=== PATIENT | female | born 1970 | race Caucasian/White ===

== ENCOUNTER 2021-02-10 17:05 | Inpatient (IN) | payer OTHER ==
[~2021-02-10] VITALS: Ht 165.1 cm; Wt 48.1 kg
[2021-02-10] VITALS (12 sets, daily range): BP systolic 98–111; BP diastolic 62–74
--- NOTE | ~2021-02-10 | EMS ---
[facility] [address] [place] [address] EMS Patient Care Report Name: VIRA ELIZALDE Room #: PRE M.R.#: [id number] Admission: Attend Phys: Discharge: Date of : 74 Report #: [id number] THIS REPORT FOR: //name// Report Transmitted: 02/10/2021 17:04 EMS Care Summary [place], [place]/[facility] Incident [id number] @ 02/10/2021 16:28 Incident Location [address] [place] [address] Patient VIRA ELIZALDE Female, 50 Years 1970 Patient Address [address] [place] [address] Patient History Alcohol Abuse, Chief Complaint altered LOC Disposition Transported No Lights/[place] Dispatch Reason Sick Person Transported To [facility] Narrative pt is known alcoholic. pt teen son came home to find his mom passed out on the couch. she was having tremors that seemed mostly normal for pt when she is having withdrawals from alcohol. she has been having light tremors for past 2 days. he took a shower and when he checked on her again, her tremors were more severe and she had slid off the couch to the floor. when she would not talk to him, he called 911. on arrival, she will spont open eyes, but no verbal response and does not appear aware of her surroundings. pt to be eval at [facility]. pt to cot, tx as listed in flow chart w/ no change. transport w/o change. [facility] [address] [place] [address] EMS Patient Care Report Name: VIRA ELIZALDE Room #: PRE ER M.R.#: [id number] Admission: Attend Phys: Discharge: Date of : 74 Report #: [id number] Initial Vitals @16:48P: 135,R: 20,BP: 135/86,GCS: 11,Glucose: 68,Revised Trauma: 11, Assessments @16:39MENTAL:SKIN:No Abnormalities,HEENT:Eyes: Left Pupil: 3-mm,Eyes: Right Pupil: 3-mm,LUNG SOUNDS:General: Other,ABDOMEN:General: Other,PELVIS//GI:Incontinence,EXTREMITIES:PULSE:Radial: 2+ Normal,NEURO:Other,Tremors,@16:55MENTAL:SKIN:HEENT:LUNG SOUNDS:ABDOMEN:PELVIS//GI:EXTREMITIES:PULSE:NEURO: Impression Alcohol dependence with withdrawal Procedures @16:39ALS AssessmentResponse: Unchanged@16:563-Lead ECGResponse: Unchanged@16:41StretcherResponse: Unchanged@16:48Narcan - 2 Milligrams (mg) - Intravenous (IV)Response: Unchanged@16:45Saline Lock 10cc (20 ga) Site: Hand-LeftResponse: UnchangedSucceeded Timeline 16:25,Call Received 16:25,Dispatch Notified 16:28,Dispatched 16:28,En Route 16:38,On Scene 16:39,At Patient 16:39,ALS Assessment,Response: Unchanged 16:41,Stretcher,Response: Unchanged 16:45,Saline Lock 10cc 20 ga Site: Hand-Left,Response: UnchangedSucceeded, 16:47,Depart Scene 16:48,BP: 135/86 M,PULSE: 135,RR: 20 R,SPO2: Ox,ETCO2: ,B,PAIN: ,GCS: 11, 16:48,Narcan - 2 Milligrams (mg) - Intravenous (IV),Response: Unchanged 16:56,3-Lead ECG,Response: Unchanged 16:58,At Destination 17:20,Call Closed Disclaimer v1.1 Copyright 2020 [employer] This EMS Care Summary contains data elements from the applicable legal record (which may be displayed differently). It is designed to provide pertinent information for the following purposes: continuity of care, clinical quality, and state data reporting. The complete legal record is available to ED staff and administrators of the receiving hospital in [employer]'s Patient Tracker. All data is provided "as is."
--- NOTE | ~2021-02-10 | EMS ---
[facility] [address] [place] [address] EMS Patient Care Report Name: VIRA ELIZALDE Room #: 203-P ADM IN M.R.#: [id number] Admission: 02/10/21 Attend Phys: Kofi Deluca MD Discharge: Date of : 74 Report #: [id number] THIS REPORT FOR: //name// Report Transmitted: 02/14/2021 10:17 EMS Care Summary [place], [place]/[facility] Incident [id number] @ 02/10/2021 16:28 Incident Location [address] [place] [address] Patient VIRA ELIZALDE Female, 50 Years 1970 Patient Address [address] [place] [address] Patient History Alcohol Abuse, Chief Complaint altered LOC Disposition Transported No Lights/[place] Dispatch Reason Sick Person Transported To [facility] Narrative pt is known alcoholic. pt teen son came home to find his mom passed out on the couch. she was having tremors that seemed mostly normal for pt when she is having withdrawals from alcohol. she has been having light tremors for past 2 days. he took a shower and when he checked on her again, her tremors were more severe and she had slid off the couch to the floor. when she would not talk to him, he called 911. on arrival, she will spont open eyes, but no verbal response and does not appear aware of her surroundings. pt to be eval at [facility]. pt to cot, tx as listed in flow chart w/ no change. transport w/o change. [facility] [address] [place] [address] EMS Patient Care Report Name: VIRA ELIZALDE Room #: 203-P ADM IN M.R.#: [id number] Admission: 02/10/21 Attend Phys: Kofi Deluca MD Discharge: Date of : 74 Report #: [id number] Initial Vitals @16:48P: 135,R: 20,BP: 135/86,GCS: 11,Glucose: 68,Revised Trauma: 11, Assessments @16:39MENTAL:SKIN:No Abnormalities,HEENT:Eyes: Left Pupil: 3-mm,Eyes: Right Pupil: 3-mm,LUNG SOUNDS:General: Other,ABDOMEN:General: Other,PELVIS//GI:Incontinence,EXTREMITIES:PULSE:Radial: 2+ Normal,NEURO:Other,Tremors,@16:55MENTAL:SKIN:HEENT:LUNG SOUNDS:ABDOMEN:PELVIS//GI:EXTREMITIES:PULSE:NEURO: Impression Alcohol dependence with withdrawal Procedures @16:39ALS AssessmentResponse: Unchanged@16:563-Lead ECGResponse: Unchanged@16:41StretcherResponse: Unchanged@16:48Narcan - 2 Milligrams (mg) - Intravenous (IV)Response: Unchanged@16:45Saline Lock 10cc (20 ga) Site: Hand-LeftResponse: UnchangedSucceeded Timeline 16:25,Call Received 16:25,Dispatch Notified 16:28,Dispatched 16:28,En Route 16:38,On Scene 16:39,At Patient 16:39,ALS Assessment,Response: Unchanged 16:41,Stretcher,Response: Unchanged 16:45,Saline Lock 10cc 20 ga Site: Hand-Left,Response: UnchangedSucceeded, 16:47,Depart Scene 16:48,BP: 135/86 M,PULSE: 135,RR: 20 R,SPO2: Ox,ETCO2: ,B,PAIN: ,GCS: 11, 16:48,Narcan - 2 Milligrams (mg) - Intravenous (IV),Response: Unchanged 16:56,3-Lead ECG,Response: Unchanged 16:58,At Destination 17:20,Call Closed Disclaimer v1.1 Copyright 2020 [employer] This EMS Care Summary contains data elements from the applicable legal record (which may be displayed differently). It is designed to provide pertinent information for the following purposes: continuity of care, clinical quality, and state data reporting. The complete legal record is available to ED staff and administrators of the receiving hospital in [employer]'s Patient Tracker. All data is provided "as is."
[2021-02-10 17:30] LABS: BASOPHILS 0.2 % (0.0-2.0); HEMATOCRIT 37.7 % (37.0-47.0); HEMOGLOBIN 12.6 gm/dL (12.0-15.0); LYMPHOCYTES 19.6 % (24.0-44.0); MCH 28.9 pg (26.0-34.0); MCHC 33.4 g/dL (28.0-37.0); MCV 86.6 fL (80.0-100.0); MONOCYTES 5.4 % (1.0-8.0); PLATELET COUNT 282 thou/uL (150-400); POLYS 74.8 % (36.0-66.0); RBC 4.35 mil/uL (4.20-5.00); RDW 16.4 % (10.5-14.5)
[2021-02-10 17:36] LABS: ANION GAP 13 mmol/L (7-16); BUN 11 mg/dL (7-18); CALCIUM 8.6 mg/dL (8.5-10.1); CHLORIDE 100 mmol/L (98-107); CO2 22 mmol/L (21-32); CREATININE 1.7 mg/dL (0.6-1.0); GLUCOSE 155 mg/dL (74-106); POTASSIUM 4.3 mmol/L (3.5-5.1); SODIUM 135 mmol/L (136-145)
[2021-02-10 18:01] LABS: URINE BILIRUBIN NEGATIVE (Negative); URINE BLOOD 1+ (Negative); URINE CLARITY CLOUDY; URINE COLOR YELLOW; URINE GLUCOSE-RANDOM* NEGATIVE (Negative); URINE KETONES 3+ (Negative); URINE NITRITE-REFLEX NEGATIVE (Negative); URINE PROTEIN (DIPSTICK) TRACE (Negative); URINE SPECIFIC GRAVITY <= 1.005 (1.005-1.035); URINE UROBILINOGEN 0.2 E.U./dl (0.2-1.0)
[2021-02-10 18:04] LABS: URINE LEUKOCYTES-REFLEX 3+ (Negative)
[2021-02-10 18:08] LABS: AMP/METHAMP Negative (Negative); BARBITURATES Negative (Negative); BENZODIAZEPINES Negative (Negative); COCAINE Negative (Negative); METHADONE Negative (Negative); OPIATES Negative (Negative); PCP Negative (Negative)
[2021-02-10 18:09] LABS: ALBUMIN 4.2 g/dL (3.4-5.0); SGOT 47 U/L (15-37); SGPT 51 U/L (14-59); TOTAL BILIRUBIN 0.6 mg/dL (0.2-1.0); TOTAL PROTEIN 7.6 g/dL (6.4-8.2); TROPONIN-I <0.06 ng/mL (<0.06)
[2021-02-10 18:32] LABS: BACTERIA-REFLEX 1-9 Few /HPF (None Seen); CASTS None Seen /LPF (None Seen); CRYSTALS None Seen /LPF (None Seen); SQUAMOUS 4-10 Moderate /LPF (0-3); URINE RBC None Seen /HPF (NONE SEEN); URINE WBC-REFLEX 0-5 Rare /HPF (0-5)
[2021-02-10 20:27] LABS: BE(vivo) -4.5 mmol/L (-2 to +3); HCO3 19.1 mmol/L (22.0-26.0); PCO2 30.8 mmHg (35.0-45.0); PO2 83.3 mmHg (80.0-100.0); sO2 96.5 % (92.0-98.0)
[2021-02-10 23:48] LABS: PHOSPHORUS 3.1 mg/dL (2.6-4.7)
[2021-02-11] VITALS (61 sets, daily range): BP systolic 81–123; BP diastolic 49–97
[2021-02-11 05:10] LABS: CALCIUM 7.4 mg/dL (8.5-10.1); CREATININE 2.4 mg/dL (0.6-1.0)
[2021-02-11 05:15] LABS: HEMATOCRIT 29.9 % (37.0-47.0); MCH 29.2 pg (26.0-34.0); MCHC 33.8 g/dL (28.0-37.0); MCV 86.3 fL (80.0-100.0); RBC 3.47 mil/uL (4.20-5.00); RDW 16.7 % (10.5-14.5); WBC 5.1 thou/uL (4.0-11.0)
[2021-02-11 05:19] LABS: POTASSIUM 2.8 mmol/L (3.5-5.1)
[2021-02-11 05:29] LABS: HEMOGLOBIN 10.1 gm/dL (12.0-15.0)
--- NOTE | 2021-02-11 05:33 | NUR ---
Pt is more awake now and now has eye open and is moving limbs independently but still does not follow commands, she does seem to recognize there is a person by her bed and can make but does not hold eye contact, pt is not restrained at this time and is a high fall risk, bed alarm is on and close observation at this time
--- NOTE | 2021-02-11 07:10 | EKG ---
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
--- NOTE | 2021-02-11 07:30 | NUR ---
pm technician at bedside setting up spot EEG. Will coordinate MRI with team after EEG.
--- NOTE | 2021-02-11 08:27 | NUR ---
and son at bedside - spoke with them about current status, plan for EEG and MRI today. answered MRI screening questions and said they would come back after breakfast to see her once her EEG was done.
--- NOTE | 2021-02-11 10:16 | NUR ---
at bedside spoke with Dr. Briseno about POC and plan for the day. Signed consent for PICC and MRI.
--- NOTE | 2021-02-11 11:37 | NUR ---
VAT CONSULTED FOR PICC PLACEMENT. RIGHT UPPER BASILIC PICC TRIMMED 42CM WITH 0CM EXTERNAL. TIP LOCATION VERIFIED WITH 3CG EQUIPMENT. PT TOLERATED WELL. RELEASED FOR USE, PER HOSPITAL VASCULAR ACCESS POLICY.
--- NOTE | 2021-02-11 14:48 | NUR ---
Returned from MRI and carotid US. RN spoke with pt in [facility] - confirmed prior issues with alcoholism including multiple outpatient and inpatient addiction treatment stays. Dr. Briseno updated. Pt currently on 0.4 of Precedex resting comfortably.
--- NOTE | 2021-02-11 16:25 | NUR ---
Dr. Bunch spoke with at bedside about pt plan of care.
[2021-02-12] VITALS (58 sets, daily range): BP systolic 87–129; BP diastolic 54–90
[2021-02-12 03:07] LABS: CALCIUM 7.7 mg/dL (8.5-10.1); CREATININE 1.7 mg/dL (0.6-1.0); MAGNESIUM 1.5 mg/dL (1.8-2.4)
[2021-02-12 03:15] LABS: POTASSIUM 2.7 mmol/L (3.5-5.1)
--- NOTE | 2021-02-12 07:35 | NUR ---
ASSUME CARE 1900. PT/VITALS STABLE. DENEIS ANY PAIN. A/O TO PERSON/PLACE AND SITUATION. COMMUNICATES NEEDS AND ANSWERS QUESTIONS APPROPRIATELY. TURNS SELF IN BED APPROPRIATELY. SWALLOW EVAL DONE BY NURSE. NO CHOKING OR COUGHING. NOTED. PT DRINKS THIN LIQUIDS WITH NO COUGHING AND TAKES SMALL PILLS APPROPRIATELY. PT IS VERY EASILY AROUSABLE AND IS BEING WEANED OFF PRECEDEX. NO AGITATION/ANXIETY, NIGHT SWEATS NOR HALLUCINATIONS NOTED. PT HAS SEVERE ESSENTIAL TREMORS BUT CAN MANAGE TO DRINK AND FEED SELF. PLAN IS TO CONITNUE TO MONITOR LOC/ELECTROLYTES/VITALS AND POSSIBLE TRANSFER TO STEP DOWN UNIT. WILL CONTNUE TO MONITOR AND FOLLOW WITH POC
--- NOTE | 2021-02-12 16:52 | NUR ---
Pt stated she was feeling less shaky after PO Ativan - stood at bedside with RN. Yellow non-slip socks in place, RN and on either side of pt. Pt stood for approx 2 minutes and shifted weight side to side well. Tolerated well, VSS.
[2021-02-13] VITALS (40 sets, daily range): BP systolic 99–253; BP diastolic 66–208
--- NOTE | 2021-02-13 07:09 | NUR ---
ASSUME CARE 1900. PT/VITALS STABLE. DENIES ANY PAIN. MODERATE TOLERANCE TO ATIVITY. WOULD BENEFIT FROM PT/OT. A.O X 4. COMMUNICATES NEEDS APPROPRIATELY. ASSESSMENT CHARTED. PROGRESSING WELL TOWARDS POC. SR ON MONITOR. ESSENTIAL TREMORS STILL SEVERE/MODERATE STABILITY WITH ATIVAN. PLAN IS TO CONTINUE TO MONITOR LOC/ELECTROLYTES, AND WATCH FOR WITHDRAWAL SYMPTOMS. WILL CONTINUE TO MONITOR AND FOLLOW WITH POC
[2021-02-13 08:31] LABS: CALCIUM 8.7 mg/dL (8.5-10.1); CREATININE 0.8 mg/dL (0.6-1.0); MAGNESIUM 1.7 mg/dL (1.8-2.4)
--- NOTE | 2021-02-13 11:17 | NUR ---
Precedex now on hold. Pt ambulate from chair to commode with standby assist, yellow socks in place. Voided easily after castaneda removal, tolerating diet.
--- NOTE | 2021-02-13 15:14 | NUR ---
PT able to ambulate to commode and back to bed. Tremors much improved over last 2 days, managing with PO Ativan. Pt still impulsive when toileting needs arise but steady. Bed alarm on.
--- NOTE | 2021-02-13 19:42 | EEG ---
[facility] [address] [place] [address] ELECTROENCEPHALOGRAM Name: VIRA ELIZALDE Room #: 246-P ADM IN M.R.#: [id number] Admission: 02/10/21 Attend Phys: Kofi Deluca MD Discharge: Date of : 74 Report #: [id number] THIS REPORT FOR: //name// DATE OF SERVICE: 02/11/2021 This patient is being evaluated for altered mental status. EEG was done by placing the electrodes by standard 10-20 system of electrode placement. Both referential and sequential montages were used for recording. Background activity in this patient's EEG is difficult to determine because it is intermixed with muscle artifact and some fast beta activity, which is probably because of the psychotropic medication that the patient has received. Background activity does appear to be about 10 Hz and 30 microvolts. The patient becomes drowsy that is associated with bilateral slowing and vertex sharp waves. Throughout the record, no active epileptiform activity was noticed. Photic stimulation is unremarkable. IMPRESSION: This patient's EEG is intermixed with theta range slowing on both sides that is the nonspecific abnormality, which can occur with effect of psychotropic medication, dementia, encephalopathy, etc. No active epileptiform activity was noticed Thank you very much for this referral. <ELECTRONICALLY SIGNED> By: Hugo Monk MD 02/13/21 1942 1008 1446 Hugo Monk MD /nt
--- NOTE | 2021-02-13 19:42 | HC ---
[facility] [place] [address] CONSULTATION Name: VIRA ELIZALDE Room #: 246-P ADM IN M.R.#: [id number] Admission: 02/10/21 Attend Phys: Kofi Deluca MD Discharge: Date of : 74 Report #: [id number] THIS REPORT FOR: cc: FAM - Family physician unknown FAM - Family physician unknown Hugo Monk MD ~ DATE OF SERVICE: 02/11/2021 HISTORY OF PRESENT ILLNESS: This 50-year-old female patient on whom the first time I got a call was around midnight last night. The Emergency Room provider has called me that this patient has come with what looks like altered mental status. The patient does not provide any history. In fact, this patient does not say a single word. I tried to call the patient's and I cannot reach him. The only history I have is from the record, which is also a poorly defined history. What is clear is that this patient drinks alcohol heavily. Some of the records indicate that she was becoming worse from the last few days and was having trouble with speech. She was noticed to be tremulous, but I am not sure if she ever had a seizure or at least well documented seizure. How long speech is going on is not clear. Some of the records say that it may be going on for a few days. REVIEW OF SYSTEMS: Positive for heavy alcohol intake. In fact, the rest of the history and examination is not possible in this patient. PAST MEDICAL HISTORY: Positive for heavy alcohol intake. FAMILY HISTORY: Unavailable. SOCIAL HISTORY: She is . I have tried to call the , but I am unable to reach him. PHYSICAL EXAMINATION: The patient's examination was very limited. She will look at you and she will not say anything. She will not follow a simple command. That makes it almost impossible to carry out any neurology examination to see if she has any focal deficit or even if she moves symmetrically or moves at all. Cardiorespiratory examination is unremarkable. IMPRESSION AND PLAN: Alcohol withdrawal. I am not sure if this patient had a well-defined seizure. She had a CT scan in the Emergency Room and that showed a question of problem with the right temporal lobe. That was worrisome because of the location in the temporal lobe to make sure she does not have any herpes encephalitis. Therefore, I had recommended MRI and MRA in this patient, which was done and MRI and MRA are basically unremarkable. There is no temporal lobe lesion to suggest any herpes encephalitis or any other lesion there. That will indicate that CT [address] [address] CONSULTATION Name: VIRA ELIZALDE Room #: 246-P [facility] IN .R.#: [id number] Admission: 02/10/21 Attend Phys: Kofi Deluca MD Discharge: Date of : 74 Report #: [id number] was probably an artifact. Her presentation is somewhat unusual. She just does not say anything. Usually with a Korsakoff psychosis, the patient talks and talks continuously, although again to keep making things up. I have reviewed her EEG. I have reviewed the MRI and MRA and they were unremarkable. I am not sure much else can be done at the moment except continue to treat her systemic problem and see how she does. Neurology was consulted for determining any etiology for altered mental status and temporal lobe abnormality on the CT. I will strictly confine myself to that and defer all the other evaluation and management to the hospitalist as well as other consultants if they want to consult. I do not think there is any need for this patient to be on seizure medication. I am holding her Keppra. If I get some different history from the , I will reconsider that. The patient is getting lorazepam and that should have enough anticonvulsant effect to prevent alcohol withdrawal seizures. I spent more than 50 minutes of time taking care of this patient today and majority was spent counseling and coordinating. Neurologically, I have limited thing to add, but I think this patient needs multiple other issues addressed including and that will be deferred to hospitalist or any other consultant rn they want to consult. <ELECTRONICALLY SIGNED> By: Hugo Monk MD 02/13/211941 41 21 Hugo Monk MD /nt
[2021-02-13 20:52] LABS: MAGNESIUM 1.7 mg/dL (1.8-2.4); POTASSIUM 3.9 mmol/L (3.5-5.1)
[2021-02-14] VITALS: BP 122/90
[2021-02-14] MEDS ORDERED: FLUOXETINE HCL20 M1 PO (01:36)
[2021-02-14] MEDS ORDERED: WELLBUTRIN SR150 MG PO (01:36)
[2021-02-14] MEDS ORDERED: LO LOESTRIN FE1 EACH PO (01:36)
[2021-02-14] MEDS ORDERED: VIIBRYD20 MG PO (01:37)
--- NOTE | 2021-02-14 01:50 | NUR ---
Report is given to CAROLYN Mei.
--- NOTE | 2021-02-14 02:30 | NUR ---
Pt left ICU via w/c. She is companied by me to room 203 with stable conditions. HR still elevated in 120's, but she is very emotional.
[2021-02-14 02:47] VITALS: BP 122/94
[2021-02-14 07:22] VITALS: BP 106/78
[2021-02-14 09:20] LABS: CALCIUM 9.9 mg/dL (8.5-10.1); CREATININE 0.6 mg/dL (0.6-1.0); POTASSIUM 3.9 mmol/L (3.5-5.1)
--- NOTE | 2021-02-14 09:29 | NUR ---
met with patient who reports sloop captain independent with adls and self care. Patient reports she resides at home with family. She is independent. She cont to drive. She has health insurance. Shayan. made copy of card and faxed to registration. casemgt following.
[2021-02-14 11:14] VITALS: BP 118/89
[2021-02-14] MEDS ORDERED: VITAMIN B-1100 M2 PO (11:39)
[2021-02-14 16:08] VITALS: BP 143/111
--- NOTE | 2021-02-14 19:28 | NUR ---
PT PROGRESSING WELL TOWARDS DISCHARGE GOAL. DENIED HAVING PAIN OR DISCOMFORT. VSS.
[2021-02-14 20:00] VITALS: BP 130/96
[2021-02-15 04:05] VITALS: BP 117/87
--- NOTE | 2021-02-15 06:04 | NUR ---
SLEPT MOST OF SHIFT. STATES FEELS CALM AT PRESENT TIME. CIWA MONITORED EVERY 2-4 HOURS NEEDED AND ATIVAN GIVEN. WORKING ON GOALS AND PLAN OF CARE FOR NOC. PROGRESSING TOWARDS DISCHARGE GOALS. CONTINUE TO ASSES.
[2021-02-15 07:26] VITALS: BP 109/83
[2021-02-15 11:47] VITALS: BP 116/85
[2021-02-15 15:03] VITALS: BP 116/85
--- NOTE | 2021-02-15 15:18 | NUR ---
ASSESSMENT CHARTED. PT ALERT AND ORIENTED. VSS. PRN ANXIETY MED GIVEN. SEEN BY DR. FERNANDEZ. ORDERS GIVEN TO DISCHARGE PT TO HOME. DISCHARGE INSTRUCTIONS GIVEN TO PT. PT VERBERLISED UNDERSTANDING. PT LEFT THE FACILITY ACCOMPANIED BY THE AND THE SON.
--- NOTE | 2021-02-15 16:44 | NUR ---
met with patient gave resources for ETOH. Patient reports she has been at [facility] in past. She reports best ETOH care and treatment. She does not like AA. She appreciates resources but if she needs ETOH information she plans to contact [facility] herself for treatment.
== END 2021-02-15 15:18 | disposition home or self-care (01) | DRG 100 ==
LOC: ER 17:05 → ICU 19:34 → EROBS 19:34 → 2N 19:34 → ICU 22:09 → 2N 02-14 02:45
PROVIDERS: Nurse Practitioner Family; Pediatrics; ADMIT Hospitalist; ATTEND Hospitalist
PROC: B54MZZA Ultrasonography of Right Upper Extremity Veins, Guidance (ICD-10-PCS; principal; 2021-02-11)
PROC: 05HY33Z Insertion of Infusion Device into Upper Vein, Percutaneous Approach (ICD-10-PCS; principal; 2021-02-11)
DX: G40.89 Other seizures (principal); G92 Toxic encephalopathy; J96.01 Acute respiratory failure with hypoxia; R57.1 Hypovolemic shock; N39.0 Urinary tract infection, site not specified; N17.9 Acute kidney failure, unspecified; F10.239 Alcohol dependence with withdrawal, unspecified; R29.898 Other symptoms and signs involving the musculoskeletal system; E87.6 Hypokalemia; Y90.9 Presence of alcohol in blood, level not specified; I95.1 Orthostatic hypotension; Z79.899 Other long term (current) drug therapy
CPT/HCPCS: 10078; 10081; 10204; 27000